=== PATIENT | female | born 1950 | race Caucasian/White ===

== ENCOUNTER 2016-11-28 12:33 | Emergency (ER) | payer BC, MEDICAID ==
[2016-11-28 12:55] VITALS: BP 132/87
[2016-11-28 13:37] LABS: Urine Bilirubin Negative (Negative); Urine Glucose Negative (Negative); Urine Nitrite Negative (Negative)
[2016-11-28 13:42] LABS: Benzodiazepine Urine Screen None Detected (None Detect)
[2016-11-28 13:50] LABS: Hematocrit 40 % (35-47); Hemoglobin 13.4 g/dl (12.0-16.0); Mean Corpuscular HGB Conc 33 g/dl (31-36); Mean Corpuscular Hemoglobin 30 pg (27-31); Mean Corpuscular Volume 88 fL (80-97); Mean Platelet Volume 9 um3 (7.4-10.4); Red Blood Count 4.54 10^6/ul (4.0-5.4); Red Cell Distribution Width 14 % (10.5-15)
[2016-11-28 14:11] LABS: ALT 13 U/L (7-52); AST 16 U/L (13-39); Albumin 4.1 g/dL (3.2-5.2); Alkaline Phosphatase 56 U/L (34-104); Anion Gap 9 mmol/L (2-11); BUN/Creatinine Ratio 20.7 (8-20); Blood Urea Nitrogen 23 mg/dL (6-24); CO2 Carbon Dioxide 26 mmol/L (22-32); Calcium 9.9 mg/dL (8.6-10.3); Chloride 103 mmol/L (101-111); EGFR African American 63.6 (>60); EGFR Non-African American 49.5 (>60); Glucose 188 mg/dL (70-100); Sodium 138 mmol/L (133-145); Total Protein 7.1 g/dL (6.4-8.9)
[2016-11-28 14:42] LABS: Acetaminophen < 15 mcg/mL; Alcohol < 10 mg/dL (<10); Salicylate < 2.50 mg/dL (<30)
--- NOTE | 2016-11-28 17:07 | ED ---
Psychiatric Complaint - HPI Summary HPI Summary: Patient is brought in by the [facility] department. The patient says she doesn't know why she was brought in. She admits that she has been refusing her medications because "she feels that they make her not well". She denies HI or SI. - History Of Current Complaint Hx Obtained From: Patient ?: No Onset/Duration: Gradual Onset Timing: Constant Severity Initially: Severe Severity Currently: Severe Character: Manic Aggravating Factor(s): Medication Non-compliance Alleviating Factor(s): Nothing Associated Signs And Symptoms: Positive: Negative Related History: Positive For: Prior Psychiatric Issues <Tanner Christie - Last Filed: 11/28/16 20:20> <Yesi Weeks - Last Filed: 11/29/16 07:42> - History Of Current Complaint Chief Complaint: EDMentalHealth - Allergies/Home Medications Allergies/Adverse Reactions: Allergies Allergy/AdvReac Type Severity Reaction Status Date / Time Ampicillin Allergy Swelling Verified 11/28/16 12:51 Of Face,Lips,& Throat Erythromycin Allergy Unknown Verified 11/28/16 12:51 Reaction Details Esomeprazole [From Nexium] Allergy Swelling Verified 11/28/16 12:51 Of Face,Lips,& Throat Penicillins [PCN] Allergy Swelling Verified 11/28/16 12:51 Of Face,Lips,& Throat Red Dye Allergy Swelling Verified 11/28/16 12:51 Of Face,Lips,& Throat Sulfa Antibiotics Allergy Swelling Verified 11/28/16 12:51 Of Face,Lips,& Throat Home Medications: Home Medications Calcium Carbonate-Vitamin D [Calcium 600 + D] 1 tab PO DAILY 11/28/16 [History Confirmed 11/28/16] Cyclobenzaprine (NF) [Cyclobenzaprine 5 MG (NF)] 5 mg PO BEDTIME PRN 11/28/16 [ History Confirmed 11/28/16] Diphenhydramine-Acetaminophen [Pain Reliever Pm Extra St 25-500 mg] 1 tab PO Q8HR PRN 11/28/16 [History Confirmed 11/28/16] Gabapentin CAP(*) [Neurontin 300 CAP(*)] 300 mg PO DAILY 11/28/16 [History Confirmed 11/28/16] Ipratropium 0.5MG/2.5ML NEB* [Atrovent 0.5 MG NEB.ARNOLDO*] 0.5 mg INH Q6H PRN 11/28 [History Confirmed 11/28/16] Lisinopril [Lisinopril 40 MG-] 40 mg PO DAILY 11/28/16 [History Confirmed ] Meloxicam(NF) [Mobic(NF)] 15 mg PO DAILY 11/28/16 [History Confirmed 11/28/16] Simvastatin TAB(NF) [Zocor(NF)] 20 mg PO DAILY 11/28/16 [History Confirmed 11/28] Spironolactone TAB* [Aldactone TAB*] 12.5 mg PO DAILY 11/28/16 [History Confirmed 11/28/16] amLODIPine TAB* [Norvasc 5 mg TAB*] 5 mg PO DAILY 11/28/16 [History Confirmed ] metFORMIN* [Glucophage 500 MG TAB *] 1,000 mg PO BID 11/28/16 [History Confirmed 11/28/16] PMH/Surg Hx/FS Hx/Imm Hx Previously Healthy: Yes Endocrine/Hematology History: Reports: Hx Diabetes Cardiovascular History: 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 Respiratory History: Reports: Hx Chronic Obstructive Pulmonary Disease (COPD) Neurological History: Reports: Hx Peripheral Neuropathy Psychiatric History: Denies: Hx Eating Disorder Infectious Disease History: No Infectious Disease History: Denies: Traveled Outside the [place] in Last 30 Days - Family History Known Family History: Positive: None - Social History Occupation: Disabled Lives: Assisted - [facility] Alcohol Use: None Substance Use Type: Reports: None Smoking Status (MU): Current Every Day Smoker Cessation Counseling: Patient Advised to Stop <Tanner Christie - Last Filed: 11/28/16 20:20> Review of Systems All Other Systems Reviewed And Are Negative: Yes <Tanner Christie - Last Filed: 11/28/16 20:20> Physical Exam Triage Information Reviewed: Yes Vital Signs On Initial Exam: Initial Vitals Temp Pulse Resp BP Pulse Ox 99.5 F 62 18 132/87 93 11/28/16 12:47 11/28/16 12:47 11/28/16 12:47 11/28/16 12:47 11/28/16 12:47 Vital Signs Reviewed: Yes Appearance: Positive: Well-Appearing, No Pain Distress, Well-Nourished Skin: Positive: Warm, Skin Color Reflects Adequate Perfusion, Dry, Soft Head/Face: Positive: Normal Head/Face Inspection Eyes: Positive: EOMI, WU, Conjunctiva Clear ENT: Positive: Hearing grossly normal Respiratory/Lung Sounds: Positive: Clear to Auscultation, Breath Sounds Present Cardiovascular: Positive: RRR Abdomen Description: Positive: Nontender, Soft Bowel Sounds: Positive: Present Musculoskeletal: Negative: Edema Left, Edema Right Neurological: Positive: Sensory/Motor Intact, Alert, Oriented to Person Place, Time, NV Bundle Intact Distally, Normal Gait Psychiatric: Positive: Affect/Mood Appropriate AVPU Assessment: Alert - Vamsi Coma Scale Coma Scale Total: 15 <Tanner Christie - Last Filed: 11/28/16 20:20> Vital Signs On Initial Exam: Initial Vitals Temp Pulse Resp BP Pulse Ox 99.5 F 62 18 132/87 93 11/28/16 12:47 11/28/16 12:47 11/28/16 12:47 11/28/16 12:47 11/28/16 12:47 <Yesi Weeks - Last Filed: 11/29/16 07:42> Diagnostics - Vital Signs Vital Signs Temp Pulse Resp BP Pulse Ox 11/28/16 15:27 100 F 11/28/16 12:47 99.5 F 62 18 132/87 93 - Laboratory Lab Results: Lab Results 11/28/16 11/28/16 11/28/16 Range/Units 13:05 13:05 13:40 WBC 8.0 (3.5-10.8) 10^3/ul RBC 4.54 (4.0-5.4) 10^6/ul Hgb 13.4 (12.0-16.0) g/dl Hct 40 (35-47) % MCV 88 (80-97) fL MCH 30 (27-31) pg MCHC 33 (31-36) g/dl RDW 14 (10.5-15) % Plt Count 150 (150-450) 10^3/ul MPV 9 (7.4-10.4) um3 Neut % (Auto) 65.4 (38-83) % Lymph % (Auto) 23.7 L (25-47) % Bacon % (Auto) 7.1 (1-9) % Eos % (Auto) 3.0 (0-6) % Baso % (Auto) 0.8 (0-2) % Absolute Neuts (auto) 5.2 (1.5-7.7) 10^3/ul Absolute Lymphs (auto) 1.9 (1.0-4.8) 10^3/ul Absolute Monos (auto) 0.6 (0-0.8) 10^3/ul Absolute Eos (auto) 0.2 (0-0.6) 10^3/ul Absolute Basos (auto) 0.1 (0-0.2) 10^3/ul Absolute Nucleated RBC 0.02 10^3/ul Nucleated RBC % 0.2 Sodium (133-145) mmol/L Potassium (3.5-5.0) mmol/L Chloride (101-111) mmol/L Carbon Dioxide (22-32) mmol/L Anion Gap (2-11) mmol/L BUN (6-24) mg/dL Creatinine (0.51-0.95) mg/dL Est GFR ( Amer) (>60) Est GFR (Non-Af Amer) (>60) BUN/Creatinine Ratio (8-20) Glucose (70-100) mg/dL Calcium (8.6-10.3) mg/dL Total Bilirubin (0.2-1.0) mg/dL AST (13-39) U/L ALT (7-52) U/L Alkaline Phosphatase (34-104) U/L Total Protein (6.4-8.9) g/dL Albumin (3.2-5.2) g/dL Globulin (2-4) g/dL Albumin/Globulin Ratio (1-3) TSH (0.34-5.60) mcIU/mL Urine Color Yellow Urine Appearance Cloudy Urine pH 6.0 (5-9) Ur Specific [place] 1.011 (1.010-1.030) Urine Protein Negative (Negative) Urine Ketones Negative (Negative) Urine Blood Negative (Negative) Urine Nitrate Negative (Negative) Urine Bilirubin Negative (Negative) Urine Urobilinogen Negative (Negative) Ur Leukocyte Esterase Negative (Negative) Urine Glucose Negative (Negative) Salicylates (<30) mg/dL Urine Opiates Screen None detected (None Detect) Acetaminophen mcg/mL Ur Barbiturates Screen None detected (None Detect) Ur Phencyclidine Scrn None detected (None Detect) Ur Amphetamines Screen None detected (None Detect) U Benzodiazepines Scrn None detected (None Detect) Urine Cocaine Screen None detected (None Detect) U Cannabinoids Screen None detected (None Detect) Serum Alcohol (<10) mg/dL 11/28/16 Range/Units 13:40 WBC (3.5-10.8) 10^3/ul RBC (4.0-5.4) 10^6/ul Hgb (12.0-16.0) g/dl Hct (35-47) % MCV (80-97) fL MCH (27-31) pg MCHC (31-36) g/dl RDW (10.5-15) % Plt Count (150-450) 10^3/ul MPV (7.4-10.4) um3 Neut % (Auto) (38-83) % Lymph % (Auto) (25-47) % Bacon % (Auto) (1-9) % Eos % (Auto) (0-6) % Baso % (Auto) (0-2) % Absolute Neuts (auto) (1.5-7.7) 10^3/ul Absolute Lymphs (auto) (1.0-4.8) 10^3/ul Absolute Monos (auto) (0-0.8) 10^3/ul Absolute Eos (auto) (0-0.6) 10^3/ul Absolute Basos (auto) (0-0.2) 10^3/ul Absolute Nucleated RBC 10^3/ul Nucleated RBC % Sodium 138 (133-145) mmol/L Potassium 4.0 (3.5-5.0) mmol/L Chloride 103 (101-111) mmol/L Carbon Dioxide 26 (22-32) mmol/L Anion Gap 9 (2-11) mmol/L BUN 23 (6-24) mg/dL Creatinine 1.11 H (0.51-0.95) mg/dL Est GFR ( Amer) 63.6 (>60) Est GFR (Non-Af Amer) 49.5 (>60) BUN/Creatinine Ratio 20.7 H (8-20) Glucose 188 H (70-100) mg/dL Calcium 9.9 (8.6-10.3) mg/dL Total Bilirubin 0.30 (0.2-1.0) mg/dL AST 16 (13-39) U/L ALT 13 (7-52) U/L Alkaline Phosphatase 56 (34-104) U/L Total Protein 7.1 (6.4-8.9) g/dL Albumin 4.1 (3.2-5.2) g/dL Globulin 3.0 (2-4) g/dL Albumin/Globulin Ratio 1.4 (1-3) TSH 0.50 (0.34-5.60) mcIU/mL Urine Color Urine Appearance Urine pH (5-9) Ur Specific [place] (1.010-1.030) Urine Protein (Negative) Urine Ketones (Negative) Urine Blood (Negative) Urine Nitrate (Negative) Urine Bilirubin (Negative) Urine Urobilinogen (Negative) Ur Leukocyte Esterase (Negative) Urine Glucose (Negative) Salicylates < 2.50 (<30) mg/dL Urine Opiates Screen (None Detect) Acetaminophen < 15 mcg/mL Ur Barbiturates Screen (None Detect) Ur Phencyclidine Scrn (None Detect) Ur Amphetamines Screen (None Detect) U Benzodiazepines Scrn (None Detect) Urine Cocaine Screen (None Detect) U Cannabinoids Screen (None Detect) Serum Alcohol < 10 (<10) mg/dL Result Diagrams: 11/28/16 13:40 11/28/16 13:40 Lab Statement: Any lab studies that have been ordered have been reviewed, and results considered in the medical decision making process. <Tanner Christie - Last Filed: 11/28/16 20:20> - Vital Signs Vital Signs Temp Pulse Resp BP Pulse Ox 11/28/16 15:27 100 F 11/28/16 12:47 99.5 F 62 18 132/87 93 - Laboratory Lab Results: Lab Results 11/28/16 11/28/16 11/28/16 Range/Units 13:05 13:05 13:40 WBC 8.0 (3.5-10.8) 10^3/ul RBC 4.54 (4.0-5.4) 10^6/ul Hgb 13.4 (12.0-16.0) g/dl Hct 40 (35-47) % MCV 88 (80-97) fL MCH 30 (27-31) pg MCHC 33 (31-36) g/dl RDW 14 (10.5-15) % Plt Count 150 (150-450) 10^3/ul MPV 9 (7.4-10.4) um3 Neut % (Auto) 65.4 (38-83) % Lymph % (Auto) 23.7 L (25-47) % Bacon % (Auto) 7.1 (1-9) % Eos % (Auto) 3.0 (0-6) % Baso % (Auto) 0.8 (0-2) % Absolute Neuts (auto) 5.2 (1.5-7.7) 10^3/ul Absolute Lymphs (auto) 1.9 (1.0-4.8) 10^3/ul Absolute Monos (auto) 0.6 (0-0.8) 10^3/ul Absolute Eos (auto) 0.2 (0-0.6) 10^3/ul Absolute Basos (auto) 0.1 (0-0.2) 10^3/ul Absolute Nucleated RBC 0.02 10^3/ul Nucleated RBC % 0.2 Sodium (133-145) mmol/L Potassium (3.5-5.0) mmol/L Chloride (101-111) mmol/L Carbon Dioxide (22-32) mmol/L Anion Gap (2-11) mmol/L BUN (6-24) mg/dL Creatinine (0.51-0.95) mg/dL Est GFR ( Amer) (>60) Est GFR (Non-Af Amer) (>60) BUN/Creatinine Ratio (8-20) Glucose (70-100) mg/dL Calcium (8.6-10.3) mg/dL Total Bilirubin (0.2-1.0) mg/dL AST (13-39) U/L ALT (7-52) U/L Alkaline Phosphatase (34-104) U/L Total Protein (6.4-8.9) g/dL Albumin (3.2-5.2) g/dL Globulin (2-4) g/dL Albumin/Globulin Ratio (1-3) TSH (0.34-5.60) mcIU/mL Urine Color Yellow Urine Appearance Cloudy Urine pH 6.0 (5-9) Ur Specific [place] 1.011 (1.010-1.030) Urine Protein Negative (Negative) Urine Ketones Negative (Negative) Urine Blood Negative (Negative) Urine Nitrate Negative (Negative) Urine Bilirubin Negative (Negative) Urine Urobilinogen Negative (Negative) Ur Leukocyte Esterase Negative (Negative) Urine Glucose Negative (Negative) Salicylates (<30) mg/dL Urine Opiates Screen None detected (None Detect) Acetaminophen mcg/mL Ur Barbiturates Screen None detected (None Detect) Ur Phencyclidine Scrn None detected (None Detect) Ur Amphetamines Screen None detected (None Detect) U Benzodiazepines Scrn None detected (None Detect) Urine Cocaine Screen None detected (None Detect) U Cannabinoids Screen None detected (None Detect) Serum Alcohol (<10) mg/dL 11/28/16 Range/Units 13:40 WBC (3.5-10.8) 10^3/ul RBC (4.0-5.4) 10^6/ul Hgb (12.0-16.0) g/dl Hct (35-47) % MCV (80-97) fL MCH (27-31) pg MCHC (31-36) g/dl RDW (10.5-15) % Plt Count (150-450) 10^3/ul MPV (7.4-10.4) um3 Neut % (Auto) (38-83) % Lymph % (Auto) (25-47) % Bacon % (Auto) (1-9) % Eos % (Auto) (0-6) % Baso % (Auto) (0-2) % Absolute Neuts (auto) (1.5-7.7) 10^3/ul Absolute Lymphs (auto) (1.0-4.8) 10^3/ul Absolute Monos (auto) (0-0.8) 10^3/ul Absolute Eos (auto) (0-0.6) 10^3/ul Absolute Basos (auto) (0-0.2) 10^3/ul Absolute Nucleated RBC 10^3/ul Nucleated RBC % Sodium 138 (133-145) mmol/L Potassium 4.0 (3.5-5.0) mmol/L Chloride 103 (101-111) mmol/L Carbon Dioxide 26 (22-32) mmol/L Anion Gap 9 (2-11) mmol/L BUN 23 (6-24) mg/dL Creatinine 1.11 H (0.51-0.95) mg/dL Est GFR ( Amer) 63.6 (>60) Est GFR (Non-Af Amer) 49.5 (>60) BUN/Creatinine Ratio 20.7 H (8-20) Glucose 188 H (70-100) mg/dL Calcium 9.9 (8.6-10.3) mg/dL Total Bilirubin 0.30 (0.2-1.0) mg/dL AST 16 (13-39) U/L ALT 13 (7-52) U/L Alkaline Phosphatase 56 (34-104) U/L Total Protein 7.1 (6.4-8.9) g/dL Albumin 4.1 (3.2-5.2) g/dL Globulin 3.0 (2-4) g/dL Albumin/Globulin Ratio 1.4 (1-3) TSH 0.50 (0.34-5.60) mcIU/mL Urine Color Urine Appearance Urine pH (5-9) Ur Specific [place] (1.010-1.030) Urine Protein (Negative) Urine Ketones (Negative) Urine Blood (Negative) Urine Nitrate (Negative) Urine Bilirubin (Negative) Urine Urobilinogen (Negative) Ur Leukocyte Esterase (Negative) Urine Glucose (Negative) Salicylates < 2.50 (<30) mg/dL Urine Opiates Screen (None Detect) Acetaminophen < 15 mcg/mL Ur Barbiturates Screen (None Detect) Ur Phencyclidine Scrn (None Detect) Ur Amphetamines Screen (None Detect) U Benzodiazepines Scrn (None Detect) Urine Cocaine Screen (None Detect) U Cannabinoids Screen (None Detect) Serum Alcohol < 10 (<10) mg/dL Result Diagrams: 11/28/16 13:40 11/28/16 13:40 Lab Statement: Any lab studies that have been ordered have been reviewed, and results considered in the medical decision making process. <Yesi Weeks - Last Filed: 11/29/16 07:42> Course/Dx - Course Course Of Treatment: Patient was evaluated by [facility] and deemed appropriate for discharge home, which I concur. - Differential Dx/Clinical Impression Differential Diagnosis/HQI/PQRI: Positive: Acute Psychosis, Anxiety, Bipolar Disorder, Depression, Homicidal Ideation, Schizophrenia, Suicidal Ideation - Physician Notifications Patient Is Medically Stable For: Psych Evaluation <Tanner Christie - Last Filed: 11/28/16 20:20> <Yesi Weeks - Last Filed: 11/29/16 07:42> - Differential Dx/Clinical Impression Provider Diagnosis: Persistent mood [affective] disorder, unspecified Discharge <Tanner Christie - Last Filed: 11/28/16 20:20> <Yesi Weeks - Last Filed: 11/29/16 07:42> - Discharge Plan Condition: Stable Disposition: HOME Patient Education Materials: Schizophrenia (ED), Dementia (ED) Referrals: Klaudia KIM,Lucy Li [Primary Care Provider] - Attestations User Type: Provider - I was available for consult. This patient was seen by the advanced practice provider. The patient was not presented to, seen by, or examined by me.-Ashleigh <Yesi Weeks - Last Filed: 11/29/16 07:42>
== END 2016-11-28 21:52 | disposition home or self-care (01) ==
LOC: ED 12:33
DX: F34.9 Persistent mood [affective] disorder, unspecified (principal); F17.210 Nicotine dependence, cigarettes, uncomplicated
CPT/HCPCS: 36415; 80053; 80307; 80320; 80329; 81003; 84443; 85025; 99284; G0480

== ENCOUNTER 2017-06-15 16:18 | Inpatient (IN) | payer BC, MEDICARE ==
--- NOTE | 2017-06-15 17:43 | RAD ---
Indication: Shortness of breath. Single frontal view of the chest performed at 1726 hours was reviewed. No prior study is available.. Cardiomegaly is noted. Patient is status post tracer thoracotomy. Interstitial edema consistent with CHF is noted. IMPRESSION: CARDIOMEGALY WITH CHF. PATIENT IS STATUS POST CHANGED STERNAL THORACOTOMY.
[2017-06-15 17:54] LABS: Hematocrit 36 % (35-47); Hemoglobin 11.7 g/dl (12.0-16.0); Mean Corpuscular HGB Conc 33 g/dl (31-36); Mean Corpuscular Hemoglobin 29 pg (27-31); Mean Corpuscular Volume 89 fL (80-97); Mean Platelet Volume 9 um3 (7.4-10.4); Red Cell Distribution Width 16 % (10.5-15); White Blood Count 7.3 10^3/ul (3.5-10.8)
[2017-06-15 18:10] LABS: Albumin 3.7 g/dL (3.2-5.2); BUN/Creatinine Ratio 28.9 (8-20); Calcium 9.5 mg/dL (8.6-10.3); EGFR African American 80.8 (>60); EGFR Non-African American 62.8 (>60); Globulin 3.2 g/dL (2-4); Potassium 3.8 mmol/L (3.5-5.0); Total Bilirubin 0.5 mg/dL (0.2-1.0); Total Protein 6.9 g/dL (6.4-8.9)
[2017-06-15 18:15] LABS: Troponin I 0.04 ng/mL (<0.04)
[2017-06-15] MEDS ORDERED: Furosemide IV* 10 MG/ML 10 ML VIAL (100 MG) IV ONE (18:19)
[2017-06-15 19:02] LABS: C Reactive Protein 3.96 mg/L (< 5.00)
[2017-06-15 19:15] LABS: Urine Bacteria Absent (Absent); Urine Bilirubin Negative (Negative); Urine Glucose Negative (Negative); Urine Nitrite Negative (Negative)
[2017-06-15] MEDS ORDERED: Albuterol/Ipratropium NEB.SOL* Albuterol 2.5 MG/Ipratropium 0.5 MG 3 ML INH PRN (19:32)
[2017-06-15] MEDS ORDERED: Cyclobenzaprine TAB* 10 MG PO PRN (20:00)
[2017-06-15] MEDS: Heparin VIAL(*) 5000 UNITS/ML VIAL (FIVE THOUSAND) SUBCUT SCH (21:21)
--- NOTE | 2017-06-16 00:57 | HP ---
HISTORY AND PHYSICAL: DATE OF ADMISSION: 06/15/17 ADMITTING PROVIDER: Cameron Celaya MD PRIMARY CARE PHYSICIAN: Unknown. PRIMARY TRAPPER BIRD: Dr. Katelynn Blood, [facility], Cardiology. Likely phone number, . CHIEF COMPLAINT: Shortness of breath. HISTORY OF PRESENT ILLNESS: The patient is a 67-year-old female presenting from [place], [place], for reported shortness of breath. The patient is a very poor historian, unable to provide reliable history and the packet that [facility] gave to the EMS is not in the emergency room. The patient reports that about 4 to 5 weeks ago, she was diagnosed with pneumonia and presented to [facility], likely received an antibiotic. Three weeks ago, she saw heel padder, Dr. Katelynn Blood of [facility], Cardiology and was diagnosed with congestive heart failure and started on a diuretic medication. The patient attests that she is not currently short of breath, having improved since getting a nebulizer treatment in the emergency room and supplemental oxygen. Denies current fever or chills, but then states she has been having fevers of 104 to 105 for the last week. Attests to some weakness, back pain and swelling in her legs. The patient reports history of COPD, new diagnosis of CHF, Lyme disease, multiple sclerosis and previously presented to this emergency room in October of this year and seemed to have a mood disorder evaluation at that time. The patient states that she does not have any living family because all 149 of her family members were killed by alternatively the bug ship or the drug ship. She states that her mother was shot by the drug ship and then left in a coma and was apparently intubated for some period of time. The patient attests that she is twice . Upon presentation to the emergency room, initial oxygen saturations were 95%, heart rate 78, blood pressure 124/51, was on room air, temperature was 97.7. The patient had a chest x-ray, which was significant for evidence of congestive heart failure with cardiomegaly and a past sternal thoracotomy. Laboratory evaluation was significant for BNP of 1836. No leukocytosis. D-dimer slightly elevated at 265, glucose 202. The patient further reports that she had followed up with the heel padder, Dr. gAuilar, initially of [place] before moving around the [facility] and was then referred to Dr. Katelynn Blood, but cannot attest to any specific cardiac diagnosis prior to CHF 3 weeks ago. EKG in the emergency room showed incomplete right bundle-branch block, QRS interval is 118, normal axis, poor R-wave progression. The patient does not know any of her medications, though does describe a diabetic pill, water pill 3 weeks ago. HOME MEDICATIONS: Pending fax from [facility], although previously in October was reportedly to be on: 1. Simvastatin 20. 2. Spironolactone 12.5. 3. Amlodipine 5. 4. Metformin 1000 mg p.o. b.i.d. 5. Gabapentin 300 mg p.o. daily. 6. Cyclobenzaprine 5 mg p.o. p.r.n. 7. Ipratropium 0.25 mg nebulizer q.6 hours p.r.n. 8. Calcium carbonate vitamin D 1 tab p.o. daily. 9. Meloxicam 15 mg p.o. daily. Addendum: Fax received: 10. lasix 20mg po daily (of note this was actually later changed to torsemide 20mg po daily by heel padder in late May or early May) 11. olanzapint 10mg qhs 12. Lisinopril 40mg po daily 13. Aristada (aripiprazole lauroxil) 662mg injection q4 weeks (started 12/04/16) 14. Aspirin 325mg daily ALLERGIES: Significant for PENICILLIN, ERYTHROMYCIN, AMPICILLIN, SULFA, ESOMEPRAZOLE, all creating swelling of the face, lips, and throat. FAMILY HISTORY: As above with external extermination by drug ship or [employer] ship. SOCIAL HISTORY: Lives in [facility]. Attests that she is the only survivor of family of 149 after extermination by the bug ship or drug ship. Denies smoking or alcohol history or illicit drug use. REVIEW OF SYSTEMS: A complete 14-point review of systems was negative except for paroxysmal nocturnal dyspnea, lower extremity edema, orthopnea, shortness of breath, recent high fevers. The patient currently denies any chest pain, chest tightness, abdominal pain, burning with urination. She does attest to "pus" from her vaginal area for a period of years. No recent headaches. PHYSICAL EXAMINATION GENERAL: [facility], sitting up in bed, nonlabored breathing, no acute distress. VITAL SIGNS: Currently 115/47, satting 96% on room air, respiratory rate 20, heart rate 93, temperature 97.7. HEENT: Normocephalic, atraumatic. No scleral icterus. Pupils are equally round and reactive to light. Extraocular motions intact. NECK: Supple. RESPIRATORY: Fairly clear, but reduced breath sounds at the bilateral bases. No rhonchi, no wheezing. CARDIOVASCULAR: Regular rate and rhythm. DAJA 3/6 loudest RUSB and LLSB. No rubs , or gallops. JVD to angle of mandible. ABDOMEN: Soft. Some tenderness to palpation in the right upper quadrant on testing his hepatojugular reflux. No peritoneal signs. EXTREMITIES: 2+ edema in bilateral shins. Pulses intact. SKIN: No rashes, no lesions. DIAGNOSTIC STUDIES/LAB DATA: WBC 7.3, hemoglobin 11.7, hematocrit 36, platelets 158,000. Sodium 138, potassium 3.8, chloride 104, BUN 26, creatinine 0.90, glucose 202, lactic acid 0.8. LFT's within normal limits. BNP 1836. Troponin 0.04. Urinalysis; 2+ protein, present squamous epithelial cells. Chest x-ray cardiomegaly with CHF status post sternal thoracotomy. ASSESSMENT AND PLAN: The patient is a 67-year-old female who is an unreliable historian, unfortunately not having arrived with any information from EMS, but reported history of congestive heart failure, recent onset chronic obstructive pulmonary disease, Lyme disease, multiple sclerosis. The patient has had a thoracotomy, presenting with shortness of breath, elevated BNP, and exam consistent with acute congestive heart failure exacerbation. The patient's heel padder, Dr. Katelynn Blood, will try to obtain more information in the morning. Medications are hopefully being faxed as we speak from [facility]. The patient received 60 mg of IV Lasix and a Trevino was placed in the emergency room with improvement in respiratory symptoms. We will continue Lasix 40 mg IV b.i.d., strict I's and O's, daily weights, wean oxygen as tolerated. Try to obtain additional echocardiogram and other information from Dr. Blood, if not repeat. The patient has no signs of active infection. Lactic acid is within normal limits. We will continue albuterol p.r.n. for reported COPD or asthma. We will confirm her blood pressure medications before starting, currently normotensive. We will trend her troponins x3 q.4 hours, put her on telemetry monitoring. The patient wants to be a full code. Denies any medical surrogate, but we will try to corroborate that from materials [facility] sends. We will put her on heparin prophylaxis given relative comorbidities. The patient will be admitted to inpatient status likely requiring diuresis for 2 to 3 days. [id number]/[facility] #: [id number] [facility]
[2017-06-16] MEDS: Heparin VIAL(*) 5000 UNITS/ML VIAL (FIVE THOUSAND) SUBCUT SCH ×3 (05:44→21:19)
[2017-06-16 06:31] LABS: Hematocrit 34 % (35-47); Hemoglobin 11.1 g/dl (12.0-16.0); Mean Corpuscular HGB Conc 33 g/dl (31-36); Mean Corpuscular Hemoglobin 29 pg (27-31); Mean Corpuscular Volume 89 fL (80-97); Mean Platelet Volume 9 um3 (7.4-10.4); Red Blood Count 3.79 10^6/ul (4.0-5.4); Red Cell Distribution Width 17 % (10.5-15); White Blood Count 6.3 10^3/ul (3.5-10.8)
[2017-06-16 06:47] LABS: BUN/Creatinine Ratio 29.9 (8-20); Calcium 8.9 mg/dL (8.6-10.3); EGFR African American 74.1 (>60); EGFR Non-African American 57.6 (>60); Magnesium 1.8 mg/dL (1.9-2.7); Potassium 4.2 mmol/L (3.5-5.0)
[2017-06-16] MEDS ORDERED: Ondansetron TAB* 4 MG PO PRN (08:44)
[2017-06-16] MEDS ORDERED: Aspirin EC TAB* 325 MG PO SCH (09:00)
[2017-06-16] MEDS ORDERED: Lisinopril TAB* 10 MG PO SCH (09:00)
[2017-06-16] MEDS ORDERED: OLANzapine TAB* 10 MG PO SCH (09:00)
[2017-06-16] MEDS ORDERED: Furosemide IV* 10 MG/ML VIAL (40 MG) IV SCH (09:00)
[2017-06-16] MEDS ORDERED: amLODIPine TAB* 5 MG PO SCH (09:00)
[2017-06-16] MEDS ORDERED: Spironolactone TAB* 25 MG PO SCH (09:00)
[2017-06-16] MEDS: Atorvastatin* 10 MG TAB PO SCH (09:36)
[2017-06-16] MEDS: Gabapentin CAP(*) 300 MG PO SCH (09:36)
[2017-06-16] MEDS: Aspirin Low Dose CHEW TAB* 81 MG PO SCH (09:37)
--- NOTE | 2017-06-16 13:19 | PN ---
Subjective Date of Service: 06/16/17 Interval History: Some dry cough awakening from sleep. Edema improved, -1300 out after ED 60IV lasix. Denies chest pain. Past Medical History: Findings - HFpEF, s/p Aortic Valve Replacment ( bioprosthetic ~2006?), moderate MVR Objective Active Medications: Albuterol/Ipratropium (Duoneb (Albuterol 2.5 Mg/Ipratropium 0.5 Mg)) 1 neb INH Q6H PRN PRN Reason: SOB/WHEEZING Aspirin (Aspirin Low Dose Tab*) 81 mg PO DAILY [facility] Last Admin: 06/16/17 09:37 Dose: 81 mg Atorvastatin Calcium (Lipitor*) 10 mg PO DAILY [facility] Last Admin: 06/16/17 09:36 Dose: 10 mg Cyclobenzaprine HCl (Flexeril Tab*) 5 mg PO BEDTIME PRN PRN Reason: SPASMS - MUSCLE Last Admin: 06/15/17 21:20 Dose: 5 mg Gabapentin (Neurontin Cap(*)) 300 mg PO DAILY [facility] Last Admin: 06/16/17 09:36 Dose: 300 mg Heparin Sodium (Porcine) (Heparin Vial(*)) 5,000 units SUBCUT Q8HR [facility] Last Admin: 06/16/17 05:44 Dose: 5,000 units Sodium Chloride (Ns 0.9% 500 Ml Bag*) 500 mls @ 1,000 mls/hr IV ONCE ONE Stop: 06/16/17 13:35 Lisinopril (Prinivil Tab*) 20 mg PO DAILY [facility] Olanzapine (Zyprexa Tab*) 10 mg PO DAILY [facility] Last Admin: 06/16/17 09:37 Dose: 10 mg Ondansetron HCl (Zofran Tab*) 4 mg PO Q6H PRN PRN Reason: NAUSEA Last Admin: 06/16/17 09:36 Dose: 4 mg Spironolactone (Aldactone Tab*) 12.5 mg PO DAILY [facility] Last Admin: 06/16/17 09:37 Dose: 12.5 mg Vital Signs 06/15/17 06/15/17 06/15/17 19:00 19:30 19:44 Temperature 97.7 F Pulse Rate 78 91 Respiratory 21 22 Rate Blood Pressure 115/42 113/46 (mmHg) O2 Sat by Pulse 92 92 Oximetry 06/15/17 06/15/1717 20:06 21:20 23:20 Temperature 97.6 F Pulse Rate 99 Respiratory 20 24 20 Rate Blood Pressure 135/45 (mmHg) O2 Sat by Pulse 93 Oximetry 06/15/17 06/16/17 06/16/17 23:48 03:35 03:36 Temperature 97.8 F 97.4 F Pulse Rate 82 85 86 Respiratory 20 20 Rate Blood Pressure 102/34 98/38 (mmHg) O2 Sat by Pulse 93 99 99 Oximetry 06/16/17 06/16/17 06/16/17 07:27 08:00 09:36 Temperature 98.1 F Pulse Rate 82 Respiratory 24 24 24 Rate Blood Pressure 97/39 (mmHg) O2 Sat by Pulse 100 Oximetry 06/16/17 06/16/17 06/16/17 11:36 11:48 12:26 Temperature 98.4 F Pulse Rate 84 Respiratory 18 18 Rate Blood Pressure 81/34 74/38 (mmHg) O2 Sat by Pulse 97 Oximetry Oxygen Devices in Use Now: Nasal Cannula Appearance: NAD Eyes: No Scleral Icterus, PERRLA Ears/Nose/Mouth/Throat: NL Teeth, Lips, Gums, Mucous Membranes Moist Neck: NL Appearance and Movements; NL JVP Respiratory: - - slight rales at base Cardiovascular: - - s1 s2, 3/6 DAJA loudest at RUSB and LLSB Abdominal: NL Sounds; No Tenderness; No Distention, No Hepatosplenomegaly Extremities: - - trace edema, improved Neurological: Alert and Oriented x 3 - delusional thought content, - Nutrition: Taking PO's Result Diagrams: 06/16/17 06:06 06/16/17 06:06 Additional Lab and Data: Laboratory Results - last 24 hr 06/15/17 06/15/17 06/15/17 17:45 17:45 17:45 WBC 7.3 RBC 4.00 Hgb 11.7 L Hct 36 MCV 89 MCH 29 MCHC 33 RDW 16 H Plt Count 158 MPV 9 Neut % (Auto) 81.6 Lymph % (Auto) 13.0 L [place] % (Auto) 3.9 Eos % (Auto) 0.7 Baso % (Auto) 0.8 Absolute Neuts (auto) 5.9 Absolute Lymphs (auto) 0.9 L Absolute Monos (auto) 0.3 Absolute Eos (auto) 0.1 Absolute Basos (auto) 0.1 Absolute Nucleated RBC 0 Nucleated RBC % 0 D-Dimer, Quantitative Sodium 138 Potassium 3.8 Chloride 104 Carbon Dioxide 27 Anion Gap 7 BUN 26 H Creatinine 0.90 Est GFR ( Amer) 80.8 Est GFR (Non-Af Amer) 62.8 BUN/Creatinine Ratio 28.9 H Glucose 202 H Lactic Acid Calcium 9.5 Magnesium Total Bilirubin 0.50 AST 21 ALT 19 Alkaline Phosphatase 45 Troponin I 0.04 H* C-Reactive Protein 3.96 B-Natriuretic Peptide 1836 H Total Protein 6.9 Albumin 3.7 Globulin 3.2 Albumin/Globulin Ratio 1.2 Urine Color Urine Appearance Urine pH Ur Specific [place] Urine Protein Urine Ketones Urine Blood Urine Nitrate Urine Bilirubin Urine Urobilinogen Ur Leukocyte Esterase Urine WBC (Auto) Urine RBC (Auto) Ur Squamous Epith Cells Urine Bacteria Urine Glucose 06/15/17 06/15/17 06/15/17 17:45 17:45 18:35 WBC RBC Hgb Hct MCV MCH MCHC RDW Plt Count MPV Neut % (Auto) Lymph % (Auto) [place] % (Auto) Eos % (Auto) Baso % (Auto) Absolute Neuts (auto) Absolute Lymphs (auto) Absolute Monos (auto) Absolute Eos (auto) Absolute Basos (auto) Absolute Nucleated RBC Nucleated RBC % D-Dimer, Quantitative 265 H Sodium Potassium Chloride Carbon Dioxide Anion Gap BUN Creatinine Est GFR ( Amer) Est GFR (Non-Af Amer) BUN/Creatinine Ratio Glucose Lactic Acid 0.8 Calcium Magnesium Total Bilirubin AST ALT Alkaline Phosphatase Troponin I C-Reactive Protein B-Natriuretic Peptide Total Protein Albumin Globulin Albumin/Globulin Ratio Urine Color Yellow Urine Appearance Clear Urine pH 5.0 Ur Specific [place] 1.023 Urine Protein 2+(100 mg/dl) H Urine Ketones Negative Urine Blood Negative Urine Nitrate Negative Urine Bilirubin Negative Urine Urobilinogen Negative Ur Leukocyte Esterase Negative Urine WBC (Auto) Absent Urine RBC (Auto) Trace(0-2/hpf) Ur Squamous Epith Cells Present H Urine Bacteria Absent Urine Glucose Negative 06/15/17 06/16/17 06/16/17 20:35 02:34 06:06 WBC 6.3 RBC 3.79 L Hgb 11.1 L Hct 34 L MCV 89 MCH 29 MCHC 33 RDW 17 H Plt Count 150 MPV 9 Neut % (Auto) 76.5 Lymph % (Auto) 16.1 L [place] % (Auto) 7.0 Eos % (Auto) 0.1 Baso % (Auto) 0.3 Absolute Neuts (auto) 4.8 Absolute Lymphs (auto) 1.0 Absolute Monos (auto) 0.4 Absolute Eos (auto) 0 Absolute Basos (auto) 0 Absolute Nucleated RBC 0 Nucleated RBC % 0 D-Dimer, Quantitative Sodium Potassium Chloride Carbon Dioxide Anion Gap BUN Creatinine Est GFR ( Amer) Est GFR (Non-Af Amer) BUN/Creatinine Ratio Glucose Lactic Acid Calcium Magnesium Total Bilirubin AST ALT Alkaline Phosphatase Troponin I 0.04 H* 0.03 C-Reactive Protein B-Natriuretic Peptide Total Protein Albumin Globulin Albumin/Globulin Ratio Urine Color Urine Appearance Urine pH Ur Specific [place] Urine Protein Urine Ketones Urine Blood Urine Nitrate Urine Bilirubin Urine Urobilinogen Ur Leukocyte Esterase Urine WBC (Auto) Urine RBC (Auto) Ur Squamous Epith Cells Urine Bacteria Urine Glucose 06/16/17 06:06 WBC RBC Hgb Hct MCV MCH MCHC RDW Plt Count MPV Neut % (Auto) Lymph % (Auto) [place] % (Auto) Eos % (Auto) Baso % (Auto) Absolute Neuts (auto) Absolute Lymphs (auto) Absolute Monos (auto) Absolute Eos (auto) Absolute Basos (auto) Absolute Nucleated RBC Nucleated RBC % D-Dimer, Quantitative Sodium 139 Potassium 4.2 Chloride 104 Carbon Dioxide 27 Anion Gap 8 BUN 29 H Creatinine 0.97 H Est GFR ( Amer) 74.1 Est GFR (Non-Af Amer) 57.6 BUN/Creatinine Ratio 29.9 H Glucose 198 H Lactic Acid Calcium 8.9 Magnesium 1.8 L Total Bilirubin AST ALT Alkaline Phosphatase Troponin I C-Reactive Protein B-Natriuretic Peptide Total Protein Albumin Globulin Albumin/Globulin Ratio Urine Color Urine Appearance Urine pH Ur Specific [place] Urine Protein Urine Ketones Urine Blood Urine Nitrate Urine Bilirubin Urine Urobilinogen Ur Leukocyte Esterase Urine WBC (Auto) Urine RBC (Auto) Ur Squamous Epith Cells Urine Bacteria Urine Glucose Assess/Plan/Problems-Billing Assessment: 67 year old female PMH HFpEF, moderate MVR, bioprosthetic AV, COPD, psychiatric disorder with delusional thought content transferred from [place] for SOB. CHF exacerbation. - Patient Problems (1) (HFpEF) heart failure with preserved ejection fraction Current Visit: Yes Status: Acute Code(s): I50.30 - UNSPECIFIED DIASTOLIC ( CONGESTIVE) HEART FAILURE SNOMED Code(s): 81126889 Comment: s/p lasix 60mg IV in ED then 40mg this AM. held for now as got hypotensive when given along with her other medications. 500cc bolus back strict io daily weights was on torsemide 20mg daily on 06/[address] Blood Cardiology note though [facility] records state lasix 20mg daily (started 03/17/17) obtain reportedly recent ECHO from Dr. Blood office (2) Mitral valve regurgitation Current Visit: Yes Status: Acute Comment: reportedly moderate, obtain ECHO report. (3) S/P aortic valve replacement Current Visit: Yes Status: Acute Code(s): Z95.2 - PRESENCE OF PROSTHETIC HEART VALVE SNOMED Code(s): 3612630479715 (4) Psychiatric disorder Current Visit: Yes Status: Acute Code(s): F99 - MENTAL DISORDER, NOT OTHERWISE SPECIFIED SNOMED Code(s): 58039575 Comment: continue olanzapine 10mg qhs get more information from Psychiatrist Dr. Temple or ?PCP Lucy Reynaga also was on Aristade 662mg injections q4 weeks. (5) Diabetes mellitus Current Visit: Yes Status: Acute Code(s): E11.9 - TYPE 2 DIABETES MELLITUS WITHOUT COMPLICATIONS SNOMED Code(s): 11968738 Comment: lispro SSI and POCT qac hs, was on home metformin(held) (6) HLD (hyperlipidemia) Current Visit: Yes Status: Acute Code(s): E78.5 - HYPERLIPIDEMIA, UNSPECIFIED SNOMED Code(s): 30725299 Comment: continue home simvastatin 20mg daily (7) COPD (chronic obstructive pulmonary disease) Current Visit: Yes Status: Acute Code(s): J44.9 - CHRONIC OBSTRUCTIVE PULMONARY DISEASE, UNSPECIFIED SNOMED Code(s): 61403741 Comment: albeterol/ipratropium inhaler q6hr prn not currently wheezing smoking cessation. Status and Disposition: medicine inpatient Attending: Cameron Celaya
[2017-06-16] MEDS ORDERED: Dextrose 50% Syringe 50 ML* 25 GM/50 ML SYRINGE IV PUSH PRN (13:34)
[2017-06-16] MEDS: NS 0.9% 500 ML BAG* 500 ML IV ONE ×2 (13:43→14:38)
[2017-06-16 15:44] LABS: Hematocrit 32 % (35-47); Hemoglobin 10.3 g/dl (12.0-16.0); Mean Corpuscular HGB Conc 33 g/dl (31-36); Mean Corpuscular Hemoglobin 30 pg (27-31); Mean Corpuscular Volume 90 fL (80-97); Mean Platelet Volume 9 um3 (7.4-10.4); Red Blood Count 3.48 10^6/ul (4.0-5.4); Red Cell Distribution Width 17 % (10.5-15); White Blood Count 8.4 10^3/ul (3.5-10.8)
[2017-06-16 15:58] LABS: PCO2 Arterial 60 mmHg (35-45)
[2017-06-16 15:58] LABS: Albumin 3.1 g/dL (3.2-5.2); BUN/Creatinine Ratio 23.3 (8-20); Calcium 8.4 mg/dL (8.6-10.3); EGFR African American 44.8 (>60); EGFR Non-African American 34.9 (>60); Globulin 2.7 g/dL (2-4); Potassium 4.5 mmol/L (3.5-5.0); Total Bilirubin 0.3 mg/dL (0.2-1.0); Total Protein 5.8 g/dL (6.4-8.9)
--- NOTE | 2017-06-16 17:50 | PN ---
Hospitalist Progress Note CTSP this afternoon for hypotension. Received IV Lasix on admission yesterday PM (60 mg) and this AM (40 mg) for CHF exacerbation. Over the day SBPs dropped to 60s-70s and did not respond to 500 cc bolus x2. Lungs relatively clear. Patient awake, but intermittently lethargic. Moved to ICU. Lactate normal. ABG shows very mild respiratory acidosis. Coristol <2. Will give hydrocortisone for possible adrenal insufficiency. Hold on additional IVF for now.
[2017-06-16] MEDS: Insulin LISPRO* 1 UNITS UNIT SUBCUT SCH ×2 (18:26→21:18)
[2017-06-16] MEDS: Hydrocortisone INJ* 100 MG VIAL IV SCH (18:27)
[2017-06-16] MEDS ORDERED: NS 0.9% 500 ML BAG* 500 ML IV ONE (19:44)
[2017-06-17] MEDS: Hydrocortisone INJ* 100 MG VIAL IV SCH (03:10)
[2017-06-17 05:35] LABS: Hematocrit 34 % (35-47); Hemoglobin 10.8 g/dl (12.0-16.0); Mean Corpuscular HGB Conc 32 g/dl (31-36); Mean Corpuscular Hemoglobin 29 pg (27-31); Mean Corpuscular Volume 91 fL (80-97); Mean Platelet Volume 10 um3 (7.4-10.4); Red Blood Count 3.69 10^6/ul (4.0-5.4); Red Cell Distribution Width 17 % (10.5-15); White Blood Count 8.1 10^3/ul (3.5-10.8)
[2017-06-17 05:57] LABS: BUN/Creatinine Ratio 25.1 (8-20); Calcium 8.6 mg/dL (8.6-10.3); EGFR African American 32.3 (>60); EGFR Non-African American 25.2 (>60); Magnesium 2.1 mg/dL (1.9-2.7)
[2017-06-17] MEDS: Heparin VIAL(*) 5000 UNITS/ML VIAL (FIVE THOUSAND) SUBCUT SCH ×2 (05:57→14:12)
[2017-06-17 06:08] LABS: Potassium 5.2 mmol/L (3.5-5.0)
--- NOTE | 2017-06-17 08:39 | RAD ---
Indication: Hypoxia, hypotension. Acute CHF. Chronic obstructive pulmonary disease and cardiac disease. Comparison: June 15, 2017 Technique: Upright AP 0815 hours Report: Cardiomegaly. Median sternotomy wires. Mildly prominent and ill-defined central pulmonary vasculature. Mild perihilar opacities and prominence of the interstitial markings at the mid to lower lung zones with thickened peripheral interlobular septa. Probable trace pleural effusions. Negative for pneumothorax. Median sternotomy wires. IMPRESSION: The constellation of findings is most consistent with pulmonary vascular congestion and interstitial edema with trace associated pleural effusions without significant interval change.
[2017-06-17] MEDS: Gabapentin CAP(*) 300 MG PO SCH (08:47)
[2017-06-17] MEDS: Aspirin Low Dose CHEW TAB* 81 MG PO SCH (08:47)
[2017-06-17] MEDS: Insulin LISPRO* 1 UNITS UNIT SUBCUT SCH ×3 (08:47→17:01)
[2017-06-17] MEDS: Atorvastatin* 10 MG TAB PO SCH (08:47)
[2017-06-17] MEDS ORDERED: Hydrocortisone INJ* 100 MG VIAL IV SCH (09:00)
[2017-06-17 09:44] LABS: Urine Random Sodium < 18 mmol/L
[2017-06-17] MEDS ORDERED: Lisinopril TAB* 10 MG PO SCH (11:00)
--- NOTE | 2017-06-17 11:28 | ECHO ---
Patient: [facility] Rec#: [id number] : 1950 Date: 06/17/2017 Age: 67y Height: 160.02 cm / 63.0 in Weight: 65.77 kg / 145.0 lbs Sex: F BSA: 1.69 Room#: [facility]9 Admit Date#: 06/15/2017 Type: Inpatient Referring: Cameron Celaya Reading: Yuliana Kirkpatrick MD Bug Trimmer: Trudy [facility] Transthoracic Echocardiogram Indication: CHF, hypotension, hypoxia BP: 84/42 HR: 82 Rhythm: NSR with PACs Findings History: Recent CHF diagnosis, s/p AVR, COPD, multiple sclerosis, Lyme disease, mental health history. Technical Comments: The study quality is fair. Completed at 1115. Left Ventricle: The left ventricular chamber size is mildly dilated. Global left ventricular wall motion and contractility are within normal limits. The estimated ejection fraction is 50-55%. EF may be overestimated due to MR. Abnormal left ventricular diastolic function is observed. Left Atrium: The left atrium is severely dilated. Right Ventricle: The right ventricular cavity size is normal. The right ventricular global systolic function is mildly to moderately reduced. Right Atrium: The right atrium is mildly dilated. Aortic Valve: There is severe aortic regurgitation. There is mild aortic stenosis. The measured aortic regurgitation pressure half-time is 183 msec. A bio-prosthetic aortic valve is present. There is a paravalvular leak of the bio-prosthetic aortic valve. Mitral Valve: There is mitral annular calcification. The mitral valve leaflets are mildly thickened. There is moderate to severe mitral regurgitation. Reversal of flow seen in pulmonary veins on 4 chamber view. Jet is lateral and posterior. There is no evidence of mitral stenosis. Tricuspid Valve: The tricuspid valve leaflets are mildly thickened. There is severe tricuspid regurgitation.medial jet. The right ventricular systolic pressure is estimated at 61 mmHg. There is evidence of severe pulmonary hypertension. There is no tricuspid stenosis. Pulmonic Valve: The pulmonic valve appears normal. There is mild pulmonic regurgitation. There is no pulmonic stenosis. Pericardium: There is no significant pericardial effusion. Aorta: There is no dilatation of the ascending aorta. There is no dilatation of the aortic arch. The aortic root is normal in size. Pulmonary Artery: The main pulmonary artery appears normal. Venous: The inferior vena cava is dilated. There is less than 50% respiratory change in the inferior vena cava dimension. Hepatic vein systolic flow is reversed. Conclusions The left ventricular chamber size is mildly dilated. The estimated ejection fraction is 50-55%, likely overestimated due to MR. The right ventricular global systolic function is mildly to moderately reduced. The left atrium is severely dilated. A bio-prosthetic aortic valve is present. There is severe aortic regurgitation: P 1/2 183 msec, reversal of flow in the descending aorta and abdominal aorta. There is moderate to severe mitral regurgitation, most consitant with severe with reversal of flow seen in pulmonary veins on 4 chamber view. There is severe tricuspid regurgitation.medial jet. The right ventricular systolic pressure is estimated at 61 mmHg. Measurements Name Value Normal Range RVIDd (AP) 2D 3.8 cm (0.9 - 2.6) RVDdMajor (2D) 4.2 cm (2.2 - 4.4) RAd ISD 4CH 5 cm (3.4 - 4.9) RA (A4C)W 4.3 cm (2.9 - 4.6) IVSd (2D) 0.7 cm (0.6 - 1) LVPWd (2D) 0.8 cm (0.6 - 1) LVIDd (2D) 5.5 cm (3.6 - 5.4) LVIDs (2D) 4.1 cm - LV FS (2D) 25 % (25 - 45) Aortic Annulus 1.7 cm (1.4 - 2.6) Ao root diameter (2D) 3.1 cm (2.1 - 3.5) Ascending Ao 3 cm (2.1 - 3.4) Aortic arch 2.3 cm (1.8 - 3.4) LA dimension (AP) 2D 4.7 cm (2.3 - 3.8) LAd ISD 4CH 6.1 cm (2.9 - 5.3) LA ISD 4CH W 4.5 cm (2.5 - 4.5) Name Value Normal Range LA ESV SP 4CH (A/L) 86 ml - LA ESV SP 2CH (A/L) 104 ml - LA ESV BP (A/L) 95 ml - LA ESV BP (A/L) index 56 ml/m2 - LA ESV SP 4CH (MOD) 79 ml - LA ESV SP 2CH (MOD) 101 ml - Name Value Normal Range MV E-wave Vmax 1.2 m/sec - MV deceleration time 175.5 msec - MV A-wave Vmax 0.81 m/sec - MV E:A ratio 1.4 ratio - LV septal e' Vmax 0.06 m/sec - LV lateral e' Vmax 0.08 m/sec - LV E:e' septal ratio 20 ratio - LV E:e' lateral ratio 15 ratio - Name Value Normal Range AV Vmax 3.1 m/sec - AV VTI 64.2 cm - AV peak gradient 37.35 mmHg - AV mean gradient 23.54 mmHg - LVOT diameter 2 cm - LVOT Vmax 1.08 m/sec - LVOT VTI 23.96 cm - LVOT peak gradient 4.72 mmHg - LVOT mean gradient 2.97 mmHg - SV LVOT 77.38 ml - CHARIS (continuity Vmax) 1.1 cm2 - CHARIS (continuity VTI) 1.2 cm2 - AR PHT 183 msec - AR peak gradient 46 mmHg - AMY Vmax 0.99 m/sec - Name Value Normal Range MR Vmax 5.11 m/sec - MR VTI 137.8 cm - MR flow (PISA) 198 ml/sec - Name Value Normal Range TR Vmax 3.24 m/sec - TR peak gradient 41 mmHg - RAP 20 mmHg - RVSP 61 mmHg - IVC diameter 2.3 cm - Name Value Normal Range PV Vmax 0.63 m/sec - PV peak gradient 1.61 mmHg -
[2017-06-17] MEDS ORDERED: Insulin LISPRO* 1 UNITS UNIT SUBCUT ONE (14:00)
--- NOTE | 2017-06-17 14:07 | DS ---
CC: Dr. Blood; Dr. Rudolph, PCP DATE OF ADMISSION: 06/15/2017. DATE OF DISCHARGE: 06/17/2017. ADMITTING PROVIDER/ATTENDING PROVIDER: Cameron Celaya MD. PCP: Lucy Rudolph MD Primary Sailboat Captain: Katelynn Blood MD CHIEF COMPLAINT: Shortness of breath, leg swelling. PRINCIPAL DIAGNOSES: Acute aortic valve insufficiency, severe, in setting of known perivalvular leak, but now severe; acute CHF exacerbation secondary to valvular dysfunction; hypotension; QUE likely secondary to ATN secondary to hypotension. HISTORY OF PRESENT ILLNESS AND HOSPITAL COURSE: The patient is a 67-year-old female presenting from [place], [place] with reported shortness of breath. The patient has a psychiatric history of psychotic features currently and is a poor, unreliable historian. Unfortunately minimal information was obtained from EMS, though [facility] does say they gave a packet materials. The patient reported that four to five weeks ago she was diagnosed with pneumonia and presented to [facility] and likely received a course of antibiotics. Three weeks ago, she states she say a resource paraprofessional, Dr. Katelynn Blood of [facility]. Records from that office show a visit on June 09 with a physician general assistant as a follow-up which seemed to show that a switch from Lasix 20 mg daily to Torsemide 20 mg daily seemed to be improving her CHF symptoms. Of note, on hospital day number two, their office faxed records of recent echo obtained on 05/20/2017 which showed moderate aortic stenosis, moderate aortic regurgitation, and concern for probable prosthetic valve dysfunction to include either valve dehiscence, torn leaflet or vegetation. There is also a small perivalvular mass that showed moderate mitral valve regurgitation at that time, ejection fracture of 55 to 75 percent, and mild to moderate tricuspid valve regurgitation. As noted, the patient is unable at the time to provide much history given her psychotic features, she was noted to have JVD to mandible of neck, a BNP of 1800, and 2+ pitting edema. She was, given the limited information at the time, admitted for acute CHF exacerbation until further records could be obtained. She received 60 mg IV Lasix in the emergency room and put out 1300 cc overnight. Her medications were faxed from [facility] and she received additional 40 units of Lasix, the first dose of a planned b.i.d. sequence on the morning of hospital day two, along with her home Amlodipine 5 mg, Lisinopril 40 mg, Spironolactone 12.5 mg that morning. However, her blood pressures quickly became very low, first 80s/30s, then 70s/30s. She received two 500 cc boluses and was transferred to the Intensive Care Unit. She had been describing a sensation of tongue swelling to covering provider and does have a history of many ALLERGIES TO PENICILLIN, AMPICILLIN, ERYTHROMYCIN AND SULFA ANTIBIOTICS. Of note, she was not started on any new medications, except for the IV formulation of Lasix. The patient was started on Solu-Medrol 50 q.6 hours for potential adrenal insufficiency by covering provider. The patient still had soft blood pressures overnight ranging from a low of high 60s/30s to 105/50s. Her kidney function worsened in the setting of this hypotension. Initial creatinine on admission was 0.9 rising to 1.5 on the afternoon of hospital day two and 1.99 on hospital day three. Upon receipt of past echocardiogram report , an urgent repeat echo was done, initially ordered on admission but held when it was found out that the patient had had one just a month prior. This showed wide open atrial regurgitation, moderate to severe mitral valve regurgitation with a severe tricuspid medial regurgitation jet, RVSP estimated at 61 mm, left atrium severely dilated, left ventricle mildly dilated, ejection fraction 50 to 55 percent, likely overestimated due to mitral regurgitation, right ventricular global systolic function, mildly to moderately reduced. Cardiology consultation had been acquired and upon evaluation of this new echo by resource paraprofessional Dr. Kirkpatrick, attempts were made to transfer the patient to [facility] for emergent valve repair surgery. The patient currently with blood pressures in the 90s/mid 50s, MAPs in the mid 70s, afebrile , heart rate 80s, satting mid 90s on 6 liters oxygen. DISCHARGE MEDICATIONS: 1. Olanzapine 10 mg p.o. daily. 2. Aspirin 81 mg daily. (changed from 325mg daily) 3. Aripiprazole Lauroxil 662 mg IM every 4 weeks. 4. Albuterol Sulfate inhaled q.4 hours prn. 5. Tylenol 1000 mg p.o. q.6 hours prn. 6. Gabapentin 300 mg p.o. daily. 7. Cyclobenzaprine 5 mg p.o. at bedtime. 8. Simvastatin 20 mg p.o. daily. 9. Metformin 1000 mg p.o. b.i.d. (currently held). Medications stopped on discharge: 1. Amlodipine 5 mg daily. 2. Spironolactone 12.5 mg daily. 3. Lisinopril 40 mg p.o. daily. 4. Torsemide 20 mg p.o. daily. 5. Meloxicam 7.5 mg p.o. daily. DIET: Heart-healthy, carbohydrate consistent. ACTIVITY RESTRICTION: None, but currently in ICU given hypoxic respiratory failure secondary to likely acute CHF exacerbation. As of this dictation, official acceptance to [facility] is pending (update:accepted), but hopeful given her previous aortic valve replacement surgery was there, reportedly with Dr. Aguilar. Time spent on this discharge was 35 minutes. [id number]/[facility] #: [id number] CINDY
[2017-06-17] MEDS: OLANzapine TAB* 10 MG PO SCH ×2 (14:12→14:13)
[2017-06-17 17:47] VITALS: BP 85/43
--- NOTE | 2017-06-17 21:17 | CONS ---
CC: Dr. Rudolph; Dr. Memo Reese, cardiothoracic surgeon at [facility]; Dr. Blood, beef tagger in [place] * CARDIOLOGY CONSULTATION: DATE OF CONSULTATION: 06/17/17 REASON FOR CONSULT: Congestive heart failure and hypotension. CHIEF COMPLAINT: Shortness of breath and sleepiness. HISTORY OF PRESENT ILLNESS: Ms. Joseph is a 67-year-old woman who had a history of aortic valve stenosis, who underwent aortic valve replacement with a bioprosthetic valve under Dr. Pina at [facility] in the past, I do not have the surgical date or valve specifics available to me. The patient is being followed by her regular beef tagger, Dr. Blood for congestive heart failure and mitral insufficiency as well as some bioprosthetic aortic insufficiency and she was last seen in their office, 06/09/17. The patient presented here from the [facility] in [place], [place], for increased shortness of breath. She had been treated for shortness of breath at [facility] 3 weeks ago with antibiotics. Currently, the patient admits to some coughing, but it is dry and no sputum. She denies fevers, chills, or sweats. I could not elicit a clear history of whether or not she had orthopnea or PND. She denies any chest pain. The patient does say her breathing has improved since she received diuretics in the emergency room, but that she is sleepier. PAST MEDICAL HISTORY: 1. Congestive heart failure, right bundle-branch block. 2. The patient has a past medical history of aortic stenosis with a bioprosthetic aortic valve. 3. Mild mitral insufficiency. 4. Hypertension. 5. Dyslipidemia. 6. COPD/tobacco use. 7. PAD with mild disease of the carotids. 8. Mood disorder. 9. Mental health history with schizophrenia, paranoid delusions. PAST SURGICAL HISTORY: Includes her aortic valve replacement. MEDICATIONS: Current inpatient medications include: 1. Aspirin 81 mg a day. 2. Lipitor 10 mg a day. 3. Flexeril p.r.n. 4. Neurontin 300 mg a day. 5. Heparin subcutaneous. 6. Solu-Cortef 50 mg IV 4 times a day. 7. Humalog insulin. 8. Zofran p.r.n. Outpatient medications include: 1. Albuterol sulfate. 2. Flexeril. 3. Vitamin D with calcium. 4. Amlodipine 5 mg a day. 5. Aldactone 12.5 mg a day. 6. Glucophage 500 mg b.i.d. 7. Lisinopril 40 mg a day. 8. Simvastatin 20 mg a day. 9. Aspirin 325 mg a day. 10. Torsemide 20 mg a day. 11. Albuterol nebulizer. ALLERGIES: Include AMPICILLIN, ERYTHROMYCIN, NEXIUM, PENICILLIN, RED DYE, and SULFA ANTIBIOTICS with swelling of the face, lips, and throat. FAMILY HISTORY: Not obtained directly from the patient. Apparently, her parents are not currently alive. She has a supportive daughter in the area who I have not yet met. SOCIAL HISTORY: The patient is currently residing at [facility]. Has a 30-pack - year history of smoking and currently smoking half a pack a day. REVIEW OF SYSTEMS: Negative for fevers, chills, sweats, hematuria, dysuria, or productive cough. Positive for increased shortness of breath and increased sleepiness. All other 14-point review of systems was unremarkable. PHYSICAL EXAM: Vital Signs: The patient is 5 feet 3 inches, weighs 145 pounds with a BMI of 25.8. On arrival to the emergency room, the patient's blood pressure is 124/51, the patient's blood pressure dropped yesterday to 74/38 following diuretics and the blood pressure currently 94/56 with the pulse of 82 , temperature 99.8, respiratory rate 20 to 24. General Appearance: Older woman appearing somewhat older than her 67 years. She is sitting and leaning forward with her head dropped and appearing to sleep, but she is easily arousable, pleasant and cooperative. Neurologically, awake, alert, oriented to person and place. I did not evaluate for time. Speech is articulate. Comprehension is good and she follows commands well. No gross sensory or motor deficits. On exam, seated in a chair. HEENT: Pupils were equal and round. Mucous membranes moderately moist. Neck: Without thyromegaly or lymphadenopathy and palpable carotid pulses bilaterally. Breath sounds, had crackles in the bases to about third the way up the lungs, left louder than right. Upper lung slater were clear. Coronary: Heart sounds were distant. S1 , S2 regular, very low-pitched diastolic murmur heard in the upper sternal border of the bowel and a soft systolic murmur heard in the right upper sternal border. There is a very low-pitched systolic murmur heard at the apex, difficult to hear. Abdomen: Soft and suboptimal exam as the patient was examined in the chair. Lower extremities are warm and well perfused. DIAGNOSTIC STUDIES/LAB DATA: The patient's EKG from 06/15/17 shows sinus rhythm at 90 beats per minute, QRS axis +60 with normal AV conduction times and right bundle- branch block, inverted T-waves in V1 through V3 and flattened Ts in the lateral leads V4 through V6. Echocardiogram done today showed mild left ventricular chamber dilatation with an ejection fraction of 50% to 55% (likely overestimated due to mitral insufficiency), RV hypokinesis noted. She had a bioprosthetic aortic valve with severe aortic insufficiency, pressure half-time 183 milliseconds. Reversible flow in the descending aorta and abdominal aorta. Moderate-to- severe mitral insufficiency with a reversal flow seen in the pulmonary veins, posterolateral jet, severe tricuspid insufficiency with a medial jet and PA pressure at 61 mmHg. Sodium 135, potassium 5.2, chloride 103, bicarb 25, BUN 50, creatinine 1.99, magnesium 2.1. Troponin #1: 0.04. Troponin #2: 0.04. Troponin #3: 0.03. BNP 1836. ABG done yesterday showed a pH of 7.31, pCO2 of 60, pO2 is 62, oxygen saturation 93%. D-dimer 265. White count 8.1, hemoglobin 10.8, hematocrit 34, platelets 145,000. Urine; 2+ protein, specific gravity 1.023, negative for ketones, no white cells, glucose negative. Chest x-rays yesterday and today consistent with congestive heart failure. IMPRESSION AND PLAN: In summary, Sheryl Joseph is a 67-year-old woman admitted with congestive heart failure and shortness of breath with a bioprosthetic aortic valve showing severe aortic insufficiency in addition to significant mitral and tricuspid insufficiency and significant pulmonary hypertension. Both ventricles are showing evidence of compromise and I feel she needs to be transferred to a center with cardiothoracic surgery for redo aortic valve replacement. The mitral and tricuspid valves do not appear structurally abnormal and the mitral and tricuspid insufficiency may improve once her aortic valve is again functioning normally or closer to normal. The transfer was discussed with the patient. She is amenable to being transferred and requests to be transferred to the center that did her original surgery ([facility]). [id number]/CPS #: [id number] CINDY
--- NOTE | 2017-06-17 22:22 | ED ---
Bhavik Magdaleno Benjamin, scribed for Pranav Hernandes MD on 06/15/17 at 1726 . Shortness of Breath - HPI Summary HPI Summary: 67yo female c/o sudden onset of SOB for 3 days. Pt has hx of COPD, and was recently dxed with PNA. Pt has been coughing and having a fever but states that these symptoms are normal for her. Also report leg aches. Pt does not use O2 at home but O2 and duo neb received in the ED helped with her SOB. Pt also has hx of DM and brain aneurysm. Pt states that she is scheduled to have pacemaker implant surgery in the next few weeks. - History of Current Complaint Chief Complaint: EDShortnessOfBreath Time Seen by Provider: 06/15/17 16:55 Hx Obtained From: Patient Onset/Duration: Sudden Onset, Lasting Days - 3 days, Still Present Timing: Constant Current Severity: Moderate Dyspnea At: Rest Associated Signs & Symptoms: Cough (Nonproductive), Fever, Calf Pain/Swelling - Allergy/Home Medications Allergies/Adverse Reactions: Allergies Allergy/AdvReac Type Severity Reaction Status Date / Time Ampicillin Allergy Swelling Verified 11/28/16 12:51 Of Face,Lips,& Throat Erythromycin Allergy Unknown Verified 11/28/16 12:51 Reaction Details Esomeprazole [From Nexium] Allergy Swelling Verified 11/28/16 12:51 Of Face,Lips,& Throat Penicillins [PCN] Allergy Swelling Verified 11/28/16 12:51 Of Face,Lips,& Throat Red Dye Allergy Swelling Verified 11/28/16 12:51 Of Face,Lips,& Throat Sulfa Antibiotics Allergy Swelling Verified 11/28/16 12:51 Of Face,Lips,& Throat PMH/Surg Hx/FS Hx/Imm Hx Endocrine/Hematology History: Reports: Hx Diabetes Cardiovascular History: 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 Respiratory History: Reports: Hx Chronic Obstructive Pulmonary Disease (COPD) Neurological History: Reports: Hx Peripheral Neuropathy Psychiatric History: Denies: Hx Eating Disorder Infectious Disease History: Yes Infectious Disease History: Denies: Traveled Outside the [place] in Last 30 Days - Family History Known Family History: Positive: None - Social History Alcohol Use: None Substance Use Type: Reports: None Smoking Status (MU): Current Every Day Smoker Review of Systems Positive: Fever Eyes: Negative ENT: Negative Cardiovascular: Negative Negative: Chest Pain Positive: Shortness Of Breath, Cough Gastrointestinal: Negative Genitourinary: Negative Positive: no symptoms reported Positive: Myalgia - leg pain Skin: Negative Neurological: Negative Psychological: Normal All Other Systems Reviewed And Are Negative: Yes Physical Exam Triage Information Reviewed: Yes Vital Signs On Initial Exam: Initial Vitals Temp Pulse Resp BP Pulse Ox 97.7 F 93 19 124/51 95 06/15/17 16:24 06/15/17 16:24 06/15/17 16:24 06/15/17 16:24 06/15/17 16:24 Vital Signs Reviewed: Yes Appearance: Positive: Well-Appearing, No Pain Distress, Well-Nourished Skin: Positive: Warm, Skin Color Reflects Adequate Perfusion, Dry Head/Face: Positive: Normal Head/Face Inspection Eyes: Positive: Normal, Conjunctiva Clear ENT: Positive: Normal ENT inspection, Hearing grossly normal Neck: Positive: Supple, Nontender Respiratory/Lung Sounds: Positive: Breath Sounds Present, Other - crackles in the right base Cardiovascular: Positive: RRR, Pulses are Symmetrical in both Upper and Lower Extremities, Murmur - systolic and diastolic ejection murmur Abdomen Description: Positive: Nontender, Soft Musculoskeletal: Positive: Strength/ROM Intact, Edema Left - peripheral edema, Edema Right - peripheral edema Neurological: Positive: Sensory/Motor Intact, Alert, Oriented to Person Place, Time Psychiatric: Positive: Affect/Mood Appropriate Diagnostics - Vital Signs Vital Signs Temp Pulse Resp BP Pulse Ox 06/15/17 16:24 97.7 F 93 19 124/51 95 - Laboratory Lab Results: Lab Results 06/15/17 06/15/17 06/15/17 Range/Units 17:45 17:45 17:45 WBC 7.3 (3.5-10.8) 10^3/ul RBC 4.00 (4.0-5.4) 10^6/ul Hgb 11.7 L (12.0-16.0) g/dl Hct 36 (35-47) % MCV 89 (80-97) fL MCH 29 (27-31) pg MCHC 33 (31-36) g/dl RDW 16 H (10.5-15) % Plt Count 158 (150-450) 10^3/ul MPV 9 (7.4-10.4) um3 Neut % (Auto) 81.6 (38-83) % Lymph % (Auto) 13.0 L (25-47) % [place] % (Auto) 3.9 (1-9) % Eos % (Auto) 0.7 (0-6) % Baso % (Auto) 0.8 (0-2) % Absolute Neuts (auto) 5.9 (1.5-7.7) 10^3/ul Absolute Lymphs (auto) 0.9 L (1.0-4.8) 10^3/ul Absolute Monos (auto) 0.3 (0-0.8) 10^3/ul Absolute Eos (auto) 0.1 (0-0.6) 10^3/ul Absolute Basos (auto) 0.1 (0-0.2) 10^3/ul Absolute Nucleated RBC 0 10^3/ul Nucleated RBC % 0 D-Dimer, Quantitative (Less Than 230) ng/mL Sodium 138 (133-145) mmol/L Potassium 3.8 (3.5-5.0) mmol/L Chloride 104 (101-111) mmol/L Carbon Dioxide 27 (22-32) mmol/L Anion Gap 7 (2-11) mmol/L BUN 26 H (6-24) mg/dL Creatinine 0.90 (0.51-0.95) mg/dL Est GFR ( Amer) 80.8 (>60) Est GFR (Non-Af Amer) 62.8 (>60) BUN/Creatinine Ratio 28.9 H (8-20) Glucose 202 H (70-100) mg/dL Lactic Acid (0.5-2.0) mmol/L Calcium 9.5 (8.6-10.3) mg/dL Total Bilirubin 0.50 (0.2-1.0) mg/dL AST 21 (13-39) U/L ALT 19 (7-52) U/L Alkaline Phosphatase 45 (34-104) U/L Troponin I 0.04 H* (<0.04) ng/mL C-Reactive Protein 3.96 (< 5.00) mg/L B-Natriuretic Peptide 1836 H ( - 100) pg/mL Total Protein 6.9 (6.4-8.9) g/dL Albumin 3.7 (3.2-5.2) g/dL Globulin 3.2 (2-4) g/dL Albumin/Globulin Ratio 1.2 (1-3) Urine Color Urine Appearance Urine pH (5-9) Ur Specific [place] (1.010-1.030) Urine Protein (Negative) Urine Ketones (Negative) Urine Blood (Negative) Urine Nitrate (Negative) Urine Bilirubin (Negative) Urine Urobilinogen (Negative) Ur Leukocyte Esterase (Negative) Urine WBC (Auto) (Absent) Urine RBC (Auto) (Absent) Ur Squamous Epith Cells (Absent) Urine Bacteria (Absent) Urine Glucose (Negative) 06/15/17 06/15/17 06/15/17 Range/Units 17:45 17:45 18:35 WBC (3.5-10.8) 10^3/ul RBC (4.0-5.4) 10^6/ul Hgb (12.0-16.0) g/dl Hct (35-47) % MCV (80-97) fL MCH (27-31) pg MCHC (31-36) g/dl RDW (10.5-15) % Plt Count (150-450) 10^3/ul MPV (7.4-10.4) um3 Neut % (Auto) (38-83) % Lymph % (Auto) (25-47) % [place] % (Auto) (1-9) % Eos % (Auto) (0-6) % Baso % (Auto) (0-2) % Absolute Neuts (auto) (1.5-7.7) 10^3/ul Absolute Lymphs (auto) (1.0-4.8) 10^3/ul Absolute Monos (auto) (0-0.8) 10^3/ul Absolute Eos (auto) (0-0.6) 10^3/ul Absolute Basos (auto) (0-0.2) 10^3/ul Absolute Nucleated RBC 10^3/ul Nucleated RBC % D-Dimer, Quantitative 265 H (Less Than 230) ng/mL Sodium (133-145) mmol/L Potassium (3.5-5.0) mmol/L Chloride (101-111) mmol/L Carbon Dioxide (22-32) mmol/L Anion Gap (2-11) mmol/L BUN (6-24) mg/dL Creatinine (0.51-0.95) mg/dL Est GFR ( Amer) (>60) Est GFR (Non-Af Amer) (>60) BUN/Creatinine Ratio (8-20) Glucose (70-100) mg/dL Lactic Acid 0.8 (0.5-2.0) mmol/L Calcium (8.6-10.3) mg/dL Total Bilirubin (0.2-1.0) mg/dL AST (13-39) U/L ALT (7-52) U/L Alkaline Phosphatase (34-104) U/L Troponin I (<0.04) ng/mL C-Reactive Protein (< 5.00) mg/L B-Natriuretic Peptide ( - 100) pg/mL Total Protein (6.4-8.9) g/dL Albumin (3.2-5.2) g/dL Globulin (2-4) g/dL Albumin/Globulin Ratio (1-3) Urine Color Yellow Urine Appearance Clear Urine pH 5.0 (5-9) Ur Specific [place] 1.023 (1.010-1.030) Urine Protein 2+(100 mg/dl) H (Negative) Urine Ketones Negative (Negative) Urine Blood Negative (Negative) Urine Nitrate Negative (Negative) Urine Bilirubin Negative (Negative) Urine Urobilinogen Negative (Negative) Ur Leukocyte Esterase Negative (Negative) Urine WBC (Auto) Absent (Absent) Urine RBC (Auto) Trace(0-2/hpf) (Absent) Ur Squamous Epith Cells Present H (Absent) Urine Bacteria Absent (Absent) Urine Glucose Negative (Negative) Result Diagrams: 06/17/17 05:10 06/17/17 05:10 Lab Statement: Any lab studies that have been ordered have been reviewed, and results considered in the medical decision making process. - Radiology CXR Xray Interpretation: Positive (See Comments) - IMPRESSION: CARDIOMEGALY WITH CHF. PATIENT IS STATUS POST CHANGED STERNAL THORACOTOMY. Radiology Interpretation Completed By: Radiologist - ED physician has reviewed this radiology report and agrees. - EKG 1716. Cardiac Rate: NL - 89bpm EKG Rhythm: Sinus Rhythm EKG Interpretation: Incomplete RBBB. Course/Dx - Course Course Of Treatment: Reviewed pts medication and allergy lists. Blood pressure noted. Consulted Dr. Veras (Cardiology) at 1724 hour regarding pt's case and pt 's EKG interpretation - Diagnoses Provider Diagnoses: CHF (congestive heart failure) - Critical Care Time Critical Care Time: 30-74 min Discharge - Discharge Plan Condition: Critical Disposition: ADMITTED TO [facility] documentation as recorded by the Bhavik smith Benjamin accurately reflects the service I personally performed and the decisions made by me, Pranav Hernandes MD.
== END 2017-06-17 17:47 | disposition short-term general hospital (02) | DRG 291 ==
LOC: ED 16:18 → MEDTELE 18:56 → ICU 06-16 15:30
PROVIDERS: ADMIT Internal Medicine; ATTEND Internal Medicine
DX: I11.0 Hypertensive heart disease with heart failure (principal); N17.0 Acute kidney failure with tubular necrosis; J96.91 Respiratory failure, unspecified with hypoxia; I67.1 Cerebral aneurysm, nonruptured; A69.20 Lyme disease, unspecified; E11.42 Type 2 diabetes mellitus with diabetic polyneuropathy; E11.51 Type 2 diabetes mellitus with diabetic peripheral angiopathy without gangrene; I95.9 Hypotension, unspecified; E87.2 Acidosis; F20.0 Paranoid schizophrenia; T82.53 Leakage of other cardiac and vascular devices and implants; E27.40 Unspecified adrenocortical insufficiency; T82.857A Stenosis of other cardiac prosthetic devices, implants and grafts, initial encounter; I50.33 Acute on chronic diastolic (congestive) heart failure; G35 Multiple sclerosis; J44.9 Chronic obstructive pulmonary disease, unspecified; E11.9 Type 2 diabetes mellitus without complications; F17.210 Nicotine dependence, cigarettes, uncomplicated; I45.10 Unspecified right bundle-branch block; I08.1 Rheumatic disorders of both mitral and tricuspid valves; E78.5 Hyperlipidemia, unspecified; I73.9 Peripheral vascular disease, unspecified; I34.0 Nonrheumatic mitral (valve) insufficiency; F39 Unspecified mood [affective] disorder; I10 Essential (primary) hypertension; Y71.2 Prosthetic and other implants, materials and accessory cardiovascular devices associated with adverse incidents; Y92.009 Unspecified place in unspecified non-institutional (private) residence as the place of occurrence of the external cause; Z88.8 Allergy status to other drugs, medicaments and biological substances; Z88.0 Allergy status to penicillin; Z88.1 Allergy status to other antibiotic agents; Z91.041 Radiographic dye allergy status; Z88.2 Allergy status to sulfonamides; Z95.2 Presence of prosthetic heart valve
CPT/HCPCS: 36415; 36600; 71010; 80048; 80053; 81003; 81015; 82140; 82533; 82570; 82803; 82947; 83605; 83735; 83880; 84300; 84484; 84540; 85025; 85379; 86140; 87040; 93005; 93306; 94760; A9270-GY; J1644; J1720; J1940